=== PATIENT | female | born 1960 | race Caucasian/White ===

== ENCOUNTER 2016-03-27 10:12 | Outpatient (RCR) | payer BC ==
[2016-03-27] VITALS (17 sets, daily range): BP systolic 96–138; BP diastolic 50–87; PULSE 74–109; TEMP 97.7–98.7
[~2016-03-27] VITALS: Ht 167.6 cm; Wt 92.7 kg
[~2016-03-27 10:12] MED LIST: ALBUTEROL; IBU800 M1 PO; NORCO 325 MG-51 TAB PO; PRINIVIL10 MG PO; PROZAC 10MG10 MG; SYNTHROID0.05 MG/TA PO
[2016-03-27 11:08] LABS: HEMATOCRIT 16.1 % (37.0-47.0); HEMOGLOBIN 5.4 g/dl (12.5-16.0)
[2016-03-27] MEDS ORDERED: FOLIC ACID 11 MG/TA1 PO (11:28)
[2016-03-27] MEDS ORDERED: PROZAC 20MG20 MG PO (11:29)
[2016-03-27] MEDS ORDERED: SPIRIVA RE2.5 MCG/Ac IH (11:29)
[2016-03-27] MEDS ORDERED: PROAIR HFA0.09 MG/AC IH (11:29)
[2016-03-27] MEDS ORDERED: NATURE'S BL400 IU/ML PO (11:30)
[2016-03-27] MEDS ORDERED: VITAMIN C500 MG PO (11:30)
[2016-03-27] MEDS ORDERED: CALCIUM 600-D 61 TAB PO (11:31)
== END 2016-06-25 | disposition home or self-care (01) ==
LOC: EUO
PROVIDERS: Internal Medicine Medical Oncology
DX: C34.2 Malignant neoplasm of middle lobe, bronchus or lung (principal); C34.32 Malignant neoplasm of lower lobe, left bronchus or lung
CPT/HCPCS: J7050; P9037; P9040

== ENCOUNTER 2016-08-29 10:53 | Observation (INO) | payer OTHER ==
[2016-08-29] VITALS (380 sets, daily range): BP systolic 108–148; BP diastolic 78–96; PULSE 80–106; TEMP 97.6–99.1; O2SAT 83–99
[~2016-08-29] VITALS: Ht 167.6 cm; Wt 80.6 kg
[~2016-08-29 10:53] MED LIST changes: +CALCIUM 600-D 61 TAB PO; +FOLIC ACID 11 MG/TA1 PO; +NATURE'S BL400 IU/ML PO; +PROAIR HFA0.09 MG/AC IH; +PROZAC 20MG20 MG PO; +SPIRIVA RE2.5 MCG/Ac IH; +VITAMIN C500 MG PO
[2016-08-29] MEDS ORDERED: ELIQUIS 5MG PO (11:21)
[2016-08-29] MEDS ORDERED: ZOVIRAX400 MG PO (11:25)
[2016-08-29] MEDS ORDERED: SEREVENT IH (11:26)
[2016-08-29 12:25] LABS: ANION GAP 13 mmol/L (7-16); BLOOD UREA NITROGEN 13 mg/dL (7-17); CARBON DIOXIDE 26 mmol/L (22-30); CHLORIDE 102 mmol/L (98-107); CREATININE, serum 1.48 mg/dL (0.52-1.25); GLUCOSE 82 mg/dL (74-106); POTASSIUM 4.5 mmol/L (3.4-5.0); SODIUM 141 mmol/L (137-145)
[2016-08-29 12:29] LABS: MEAN CELL VOLUME 97 fl (80.0-100.0); MEAN CORPUSCULAR HGB CONC 32 g/dl (33.0-37.0); MEAN PLATELET VOLUME 11.2 fl (7.4-10.4); PLATELET COUNT 134 K/mm3 (130-400); RED BLOOD COUNT 3.28 M/mm3 (4.10-5.30); REDCELL DISTRIBUTION WIDTH-CV 17.7 % (11.5-14.5); WHITE BLOOD COUNT 5.9 K/mm3 (4.8-10.8)
[2016-08-29 12:34] LABS: B-TYPE NATRIURETIC PEPTIDE 1500 pg/mL (0-125); HEMATOCRIT 31.9 % (37.0-47.0); HEMOGLOBIN 10.2 g/dl (12.5-16.0); MEAN CORPUSCULAR HEMOGLOBIN 31 pg (27.0-31.0)
[2016-08-29 12:36] LABS: TROPONIN-I < 0.012 ng/mL (0.000-0.034)
[2016-08-30] VITALS (354 sets, daily range): BP systolic 111–152; BP diastolic 72–92; PULSE 85–87; TEMP 97–99.1; O2SAT 87–98
[2016-08-30 05:48] LABS: BASO % 0.4 % (0.0-2.0); EOS # 0.1 (0.0-0.7); GRAN % 75.3 % (42.2-75.2); LYMPH # 0.7 (1.2-3.4); LYMPH % 13.9 % (20.0-51.0); MEAN CELL VOLUME 98 fl (80.0-100.0); MEAN CORPUSCULAR HGB CONC 32 g/dl (33.0-37.0); MEAN PLATELET VOLUME 10.6 fl (7.4-10.4); MONO # 0.5 (0.1-0.6); PLATELET COUNT 132 K/mm3 (130-400); RED BLOOD COUNT 3.13 M/mm3 (4.10-5.30); REDCELL DISTRIBUTION WIDTH-CV 17.2 % (11.5-14.5); WHITE BLOOD COUNT 5.2 K/mm3 (4.8-10.8)
[2016-08-30 05:57] LABS: HEMATOCRIT 30.8 % (37.0-47.0); HEMOGLOBIN 9.9 g/dl (12.5-16.0); MEAN CORPUSCULAR HEMOGLOBIN 32 pg (27.0-31.0)
[2016-08-30 06:07] LABS: CALCIUM 8.2 mg/dL (8.4-10.2); CREATININE, serum 1.4 mg/dL (0.52-1.25); MAGNESIUM 1.7 mg/dL (1.6-2.3); POTASSIUM 4.4 mmol/L (3.4-5.0)
[2016-08-30] MEDS ORDERED: PREDNISONE20 MG PO (09:07)
== END 2016-08-30 09:35 | disposition home or self-care (01) ==
LOC: ICU 10:53 → MEDICAL 10:53 → ICU 14:13
PROVIDERS: Anesthesiology Critical Care Medicine; Internal Medicine Interventional Cardiology
DX: I31.3 Pericardial effusion (noninflammatory) (principal); C34.90 Malignant neoplasm of unspecified part of unspecified bronchus or lung; Z86.718 Personal history of other venous thrombosis and embolism; Z79.01 Long term (current) use of anticoagulants
CPT/HCPCS: G0378; G0379; J2250; J3010

== ENCOUNTER → 2018-02-24 | Outpatient (CLI) | payer OTHER ==
[~2018-02-24] VITALS: Ht 167.6 cm; Wt 72.5 kg
[~2018-02-24] MED LIST changes: +AMOXICILLIN 8751 TAB PO; +ELIQUIS 5MG PO; +PREDNISONE20 MG PO; +SEREVENT IH; +ZOVIRAX400 MG PO
[2018-02-24 11:52] VITALS: BP 110/77; PULSE 73
[2018-02-24 13:28] VITALS: BP 151/86; PULSE 69
== END ==
LOC: COL.RAD 11:07
DX: C34.2 Malignant neoplasm of middle lobe, bronchus or lung (principal)
CPT/HCPCS: 32108

== ENCOUNTER → 2018-06-15 | Outpatient (CLI) | payer BC, OTHER ==
[~2018-06-15] VITALS: Ht 167.6 cm; Wt 69.1 kg
[~2018-06-15] MED LIST changes: +ALDACTONE 25MG25 M1 PO; +SINGULAIR 110 MG/TAB PO; +TRELEGY ELLIPT1 EACH IH
[2018-06-15 06:47] VITALS: BP 147/83; PULSE 117
[2018-06-15 08:56] VITALS: BP 117/79; PULSE 111
--- NOTE | 2018-06-15 09:14 | NUR ---
notification that cxr was negative. pt was taken to pov in wheelchair.
== END ==
LOC: COL.RAD 06:32
DX: C79.51 Secondary malignant neoplasm of bone (principal); J90 Pleural effusion, not elsewhere classified; R91.8 Other nonspecific abnormal finding of lung field; Z95.828 Presence of other vascular implants and grafts